=== PATIENT | female | born 1955 | race African-American/Black ===

== ENCOUNTER 2024-10-23 17:26 | Emergency (ER) | payer MEDICARE, OTHER ==
[~2024-10-23] VITALS: Ht 165.1 cm; Wt 81.0 kg
[2024-10-23 17:28] VITALS: BP 154/96; PULSE 97; RESP 18; TEMP 38; O2SAT 98
[2024-10-23] MEDS ORDERED: KETOROLAC 30MG/ML VIAL IM STA (20:33)
== END 2024-10-23 23:27 | disposition home or self-care (01) ==
LOC: ER 17:26
DX: J06.9 Acute upper respiratory infection, unspecified (principal); B97.89 Other viral agents as the cause of diseases classified elsewhere; R07.89 Other chest pain
CPT/HCPCS: 71045; 99283; J1885